=== PATIENT | female | born 1935 | race Caucasian/White ===

== ENCOUNTER → 2017-07-31 | Outpatient (CLI) | payer OTHER ==
[~2017-07-31] MED LIST: ACIFEX; ANTIVERT25 M1 PO; BISOPROLOL-HCT1 EACH; CRESTOR; CRESTOR20 MG PO; LEVOXIL; LEVOXYL112 MCG PO; NEXIUM40 MG/PACK PO; ZIRTEC
== END | disposition home or self-care (01) ==
LOC: RAD 10:54
DX: M17.0 Bilateral primary osteoarthritis of knee (principal); M25.562 Pain in left knee; M25.561 Pain in right knee

== ENCOUNTER 2017-10-06 08:30 | Outpatient (CLI) | payer OTHER | END 2017-10-06 08:38 | disposition home or self-care (01) | LOC: SONOGRAMA 08:30 → MAMO-SONO 09:15 | DX: R10.11 Right upper quadrant pain (principal) ==

== ENCOUNTER 2017-10-06 08:57 | Outpatient (CLI) | payer OTHER | END 2017-10-06 10:21 | disposition home or self-care (01) | LOC: LAB 08:57 | DX: I10 Essential (primary) hypertension (principal); E03.8 Other specified hypothyroidism; G62.89 Other specified polyneuropathies; M54.14 Radiculopathy, thoracic region; M51.37 Other intervertebral disc degeneration, lumbosacral region; N39.0 Urinary tract infection, site not specified; I83.813 Varicose veins of bilateral lower extremities with pain; Z12.11 Encounter for screening for malignant neoplasm of colon ==

== ENCOUNTER 2018-03-12 11:36 | Outpatient (CLI) | payer OTHER | END 2018-03-12 12:59 | disposition home or self-care (01) | LOC: RAD 11:36 | DX: J06.9 Acute upper respiratory infection, unspecified (principal); J42 Unspecified chronic bronchitis ==

== ENCOUNTER 2018-03-22 09:08 | Outpatient (CLI) | payer OTHER | END 2018-03-22 09:12 | disposition home or self-care (01) | LOC: SONOGRAMA 09:08 | DX: R10.11 Right upper quadrant pain (principal) ==

== ENCOUNTER 2019-01-28 08:42 | Outpatient (CLI) | payer OTHER | END 2019-01-28 09:01 | disposition home or self-care (01) | LOC: NUCLEAR 08:42 | DX: I67.89 Other cerebrovascular disease (principal) ==

== ENCOUNTER 2019-01-28 09:44 | Outpatient (CLI) | payer OTHER | END 2019-01-28 10:00 | disposition home or self-care (01) | LOC: MAMO-SONO 09:44 | DX: Z12.31 Encounter for screening mammogram for malignant neoplasm of breast (principal); Z87.898 Personal history of other specified conditions; N61.0 Mastitis without abscess; N60.12 Diffuse cystic mastopathy of left breast; N60.11 Diffuse cystic mastopathy of right breast ==

== ENCOUNTER 2019-02-03 08:51 | Outpatient (CLI) | payer OTHER | END 2019-02-03 09:05 | disposition home or self-care (01) | LOC: NUCLEAR 08:51 | DX: I87.2 Venous insufficiency (chronic) (peripheral) (principal) ==

== ENCOUNTER 2019-03-29 08:04 | Outpatient (CLI) | payer OTHER | END 2019-03-29 08:14 | disposition home or self-care (01) | LOC: LAB 08:04 | DX: D50.8 Other iron deficiency anemias (principal); D63.8 Anemia in other chronic diseases classified elsewhere; E03.8 Other specified hypothyroidism; D55.0 Anemia due to glucose-6-phosphate dehydrogenase [G6PD] deficiency; D51.8 Other vitamin B12 deficiency anemias; D63.1 Anemia in chronic kidney disease; N18.3 Chronic kidney disease, stage 3 (moderate); E06.3 Autoimmune thyroiditis; L43.8 Other lichen planus; K29.70 Gastritis, unspecified, without bleeding ==

== ENCOUNTER 2019-04-03 13:28 | Outpatient (CLI) | payer OTHER | END 2019-04-03 13:52 | disposition home or self-care (01) | LOC: LAB 13:28 | DX: R97.0 Elevated carcinoembryonic antigen [CEA] (principal) ==

== ENCOUNTER 2020-04-02 14:41 | Outpatient (CLI) | payer OTHER | END 2020-04-02 14:48 | disposition home or self-care (01) | LOC: RAD 14:41 | PROVIDERS: ATTEND Internal Medicine Pulmonary Disease | DX: J45.41 Moderate persistent asthma with (acute) exacerbation (principal); J30.1 Allergic rhinitis due to pollen; R06.02 Shortness of breath ==

== ENCOUNTER 2020-09-07 07:47 | Emergency (ER) | payer OTHER ==
[~2020-09-07] VITALS: Ht 162.6 cm; Wt 70.8 kg
[2020-09-07] MEDS ORDERED: NEURONTIN800 MG (07:55)
[2020-09-07] MEDS ORDERED: OMEPRAZOLE40 MG PO (07:55)
[2020-09-07] MEDS ORDERED: METRONIDAZOLE500 MG PO (11:27)
[2020-09-07] MEDS ORDERED: CIPRO500 MG PO (11:27)
== END 2020-09-07 12:19 | disposition home or self-care (01) ==
LOC: ER 07:47
DX: K57.30 Diverticulosis of large intestine without perforation or abscess without bleeding (principal); R10.32 Left lower quadrant pain

== ENCOUNTER 2020-11-08 10:04 | Outpatient (CLI) | payer OTHER ==
[~2020-11-08 10:04] MED LIST changes: +CIPRO500 MG PO; +METRONIDAZOLE500 MG PO; +NEURONTIN800 MG; +OMEPRAZOLE40 MG PO
== END 2020-11-08 10:07 | disposition home or self-care (01) ==
LOC: LAB 10:04
PROVIDERS: ATTEND Internal Medicine Gastroenterology
DX: Z11.52 Encounter for screening for COVID-19 (principal); Z20.828 Contact with and (suspected) exposure to other viral communicable diseases

== ENCOUNTER 2020-12-27 09:36 | Emergency (ER) | payer OTHER ==
[~2020-12-27] VITALS: Ht 160 cm; Wt 68.9 kg
== END 2020-12-27 18:29 | disposition home or self-care (01) ==
LOC: ER 09:36
DX: K57.30 Diverticulosis of large intestine without perforation or abscess without bleeding (principal)

== ENCOUNTER 2021-07-18 13:49 | Outpatient (CLI) | payer OTHER | END 2021-07-18 14:01 | disposition home or self-care (01) | LOC: SONOGRAMA 13:49 | PROVIDERS: ATTEND Internal Medicine Endocrinology, Diabetes & Metabolism | DX: E03.9 Hypothyroidism, unspecified (principal) ==

== ENCOUNTER 2021-10-25 07:22 | Inpatient (IN) | payer OTHER ==
[~2021-10-25] VITALS: Ht 160 cm; Wt 72.1 kg
--- NOTE | 2021-10-25 08:05 | NUR ---
SE RECIBE PE ALERTA Y ORIENTADA X3 CUAL REFIERE DOLOR PELVICO DESDE [place]. REFIRE NO [place]GR[place], NO DOLOR/MOLESTIAS AL ORINAR. SE MARION S/V Y SE UBICA. PTE CON DX DE DIVERTICULITIS.
--- NOTE | 2021-10-25 08:50 | NUR ---
SE LE ORIENTA A PTE SOBRE TRATAMIENTO A SEGUIR, KENNY REFIERE ENTENDER. SE LE COLECTA MUESTRAS JANIE ORDEN MEDICA. PTE REHUSA MEDICAMENTOS
--- NOTE | 2021-10-25 15:56 | NUR ---
SE RECIBE PTE ALERTA Y ORIENTADA X3 EN TIMOTHY CON BARANDAS ELEVADAS. PTE EN ESPERA DE CT PO PENDIENTE.PTE SE MANTIENE BAJO OBSERVACION POR CAMBIOS.
== END 2021-10-28 18:14 | disposition home or self-care (01) | DRG 392 ==
LOC: ER 07:22 → MEDI 17:16
PROVIDERS: ADMIT Internal Medicine; ATTEND Internal Medicine
DX: K57.32 Diverticulitis of large intestine without perforation or abscess without bleeding (principal); K44.9 Diaphragmatic hernia without obstruction or gangrene; I70.90 Unspecified atherosclerosis; I10 Essential (primary) hypertension; E78.5 Hyperlipidemia, unspecified; E03.9 Hypothyroidism, unspecified

== ENCOUNTER 2022-02-28 13:03 | Outpatient (CLI) | payer OTHER | END 2022-02-28 13:17 | disposition home or self-care (01) | LOC: MRI 13:03 | DX: M75.101 Unspecified rotator cuff tear or rupture of right shoulder, not specified as traumatic (principal) | CPT/HCPCS: 73221 ==

== ENCOUNTER → 2022-03-21 | Outpatient (CLI) | payer OTHER | END | disposition home or self-care (01) | LOC: TOM 03-20 12:38 | PROVIDERS: ATTEND Colon & Rectal Surgery | DX: K57.32 Diverticulitis of large intestine without perforation or abscess without bleeding (principal) ==

== ENCOUNTER 2022-03-23 13:57 | Outpatient (CLI) | payer OTHER | END 2022-03-23 14:07 | disposition home or self-care (01) | LOC: SONOGRAMA 13:57 | PROVIDERS: ATTEND Specialist | DX: R10.2 Pelvic and perineal pain (principal) ==

== ENCOUNTER 2022-06-28 11:10 | Outpatient (CLI) | payer OTHER | END 2022-06-28 11:30 | disposition home or self-care (01) | LOC: RAD 11:10 | PROVIDERS: ATTEND Orthopaedic Surgery | DX: M17.0 Bilateral primary osteoarthritis of knee (principal); M16.10 Unilateral primary osteoarthritis, unspecified hip; M54.50 Low back pain, unspecified; M54.59 Other low back pain | CPT/HCPCS: 72148 ==

== ENCOUNTER 2022-10-05 05:42 | Emergency (ER) | payer OTHER ==
[~2022-10-05] VITALS: Ht 170.2 cm; Wt 79.4 kg
[2022-10-05] MEDS ORDERED: GABAPENTIN100 MG (05:52)
[2022-10-05] MEDS ORDERED: TIROSINT112 MCG (05:52)
[2022-10-05] MEDS ORDERED: ZIAC 2.5-6.251 EACH (05:52)
[2022-10-05] MEDS ORDERED: CRESTOR20 MG (05:52)
[2022-10-05] MEDS ORDERED: DICY20TA PO (11:24)
[2022-10-05] MEDS ORDERED: CIPRO500 MG PO (11:24)
[2022-10-05] MEDS ORDERED: INTESTINEX680 M1 PO (11:24)
[2022-10-05] MEDS ORDERED: FLAGYL375 MG PO (11:24)
== END 2022-10-05 11:36 | disposition home or self-care (01) ==
LOC: ER 05:42
DX: K57.92 Diverticulitis of intestine, part unspecified, without perforation or abscess without bleeding (principal); Z88.2 Allergy status to sulfonamides; I11.0 Hypertensive heart disease with heart failure; E03.9 Hypothyroidism, unspecified

== ENCOUNTER 2023-02-17 08:26 | Inpatient (IN) | payer OTHER ==
[~2023-02-17] VITALS: Ht 165.1 cm; Wt 69.4 kg
[~2023-02-17 08:26] MED LIST changes: +CRESTOR20 MG; +DICY20TA PO; +FLAGYL375 MG PO; +GABAPENTIN100 MG; +INTESTINEX680 M1 PO; +TIROSINT112 MCG; +ZIAC 2.5-6.251 EACH
[2023-02-17 09:58] LABS: ALBUMIN 3.4 gm/dL (3.4-5.0); BILIRUBIN TOTAL 0.74 mg/dL (0.3-1.2); CALCIUM 8.9 mg/dL (8.5-10.1); CREATININE SERUM 0.86 mg/dL (0.55-1.02); GFR 62.71; GLOBULINA 3.9 G/DL (2.4-3.5); POTASSIUM 4.57 mEq/L (3.5-5.1); TOTAL PROTEIN 7.3 gm/dL (6.4-8.2)
[2023-02-17 10:02] LABS: PH,URINE 7.5 (5.0-8.0); URINE APPEARANCE Clear; URINE BILIRRUBIN Negative (NEGATIVE); URINE BLOOD Negative; URINE COLOR Yellow; URINE GLUCOSE Negative (NEGATIVE); URINE LEUKOCYTE Negative; URINE NITRATE Negative; URINE PROTEIN Negative (NEGATIVE); URINE UROBILINOGEN 0.2 E.U./dl
[2023-02-17 10:03] LABS: HEMATOCRIT 38.5 % (36.0-45.00); HEMOGLOBIN 13.3 g/dL (12.0-15.00); MEAN CELL VOLUME 92.4 fL (80.00-100.00); MEAN CORPUSCULAR HGB CONC 34.6 g/dl (32.0-36.0); PLATELET COUNT 201 K/uL (150-450); RED BLOOD COUNT 4.17 M/uL (4.00-6.00); RED CELL DISTRIBUTION WIDTH 13.3 % (11.5-14.5)
[2023-02-17 10:23] LABS: URINE BACTERIA FEW; URINE MUCUS SCANT
[2023-02-17 10:25] LABS: URINE CRYSTALS FEW /HPF; URINE RBC 0-3 /HPF; URINE WBC 0-2 /hpf
[2023-02-17 22:19] LABS: INR 1.04; PARTIAL THROMBOPLASTIN TIME 28.6 SECONDS (22.0-34.0); PROTHROMBIN TIME 10.9 SECONDS (9.0-11.5)
[2023-02-19 08:12] LABS: ALBUMIN 3.7 gm/dL (3.4-5.0); BILIRUBIN TOTAL 0.79 mg/dL (0.3-1.2); CREATININE SERUM 0.68 mg/dL (0.55-1.02); GFR 82.23; GLOBULINA 3.1 G/DL (2.4-3.5); MAGNESIUM 2.2 mg/dL (1.8-2.4); PHOSPHOROUS 2.5 mg/dL (2.5-4.9); POTASSIUM 3.91 mEq/L (3.5-5.1); TOTAL PROTEIN 6.8 gm/dL (6.4-8.2)
[2023-02-19 13:56] LABS: HEMATOCRIT 42.4 % (36.0-45.00); HEMOGLOBIN 14.5 g/dL (12.0-15.00); MEAN CELL VOLUME 94.5 fL (80.00-100.00); MEAN CORPUSCULAR HEMOGLOBIN 32.3 pg (27.00-32.0); MEAN CORPUSCULAR HGB CONC 34.2 g/dl (32.0-36.0); PLATELET COUNT 222 K/uL (150-450); RED BLOOD COUNT 4.49 M/uL (4.00-6.00); RED CELL DISTRIBUTION WIDTH 13.1 % (11.5-14.5)
[2023-02-20] MEDS ORDERED: CIPRO500 MG PO (14:57)
[2023-02-20] MEDS ORDERED: METRONIDAZOLE500 MG PO (14:58)
== END 2023-02-20 15:05 | disposition home or self-care (01) | DRG 392 ==
LOC: ER → OB/GYN 21:05
PROVIDERS: General Practice; ADMIT Internal Medicine; ATTEND Internal Medicine
PROC: BW21ZZZ Computerized Tomography (CT Scan) of Abdomen and Pelvis (ICD-10-PCS; principal; 2023-02-17)
DX: K57.32 Diverticulitis of large intestine without perforation or abscess without bleeding (principal); I10 Essential (primary) hypertension; E78.49 Other hyperlipidemia; E03.9 Hypothyroidism, unspecified; Z88.2 Allergy status to sulfonamides

== ENCOUNTER 2023-03-05 09:07 | Outpatient (CLI) | payer OTHER | END 2023-03-05 09:08 | disposition home or self-care (01) | LOC: NUCLEAR 09:07 | PROVIDERS: ATTEND Internal Medicine | DX: I73.9 Peripheral vascular disease, unspecified (principal); Z86.718 Personal history of other venous thrombosis and embolism ==

== ENCOUNTER 2023-03-06 09:50 | Outpatient (CLI) | payer OTHER | END 2023-03-06 09:51 | disposition home or self-care (01) | LOC: NUCLEAR 09:50 | DX: I73.9 Peripheral vascular disease, unspecified (principal) ==

== ENCOUNTER 2023-05-10 12:17 | Outpatient (CLI) | payer OTHER ==
[2023-05-10 13:26] LABS: CREATININE SERUM 0.84 mg/dL (0.55-1.02); GFR 64.44
== END 2023-05-10 12:20 | disposition home or self-care (01) ==
LOC: LAB 12:17
PROVIDERS: ATTEND Radiology Diagnostic Radiology
DX: R10.30 Lower abdominal pain, unspecified (principal)

== ENCOUNTER → 2023-05-11 | Outpatient (CLI) | payer OTHER | END | disposition home or self-care (01) | LOC: TOM 08:00 | PROVIDERS: ATTEND Internal Medicine | DX: R90.0 Intracranial space-occupying lesion found on diagnostic imaging of central nervous system (principal) ==

== ENCOUNTER → 2023-06-29 | Outpatient (CLI) | payer OTHER | END | disposition home or self-care (01) | LOC: MRI 13:36 | DX: M47.22 Other spondylosis with radiculopathy, cervical region (principal) | CPT/HCPCS: 72141 ==

== ENCOUNTER 2023-10-28 08:50 | Emergency (ER) | payer OTHER ==
[~2023-10-28] VITALS: Ht 160 cm; Wt 68.0 kg
[2023-10-28] MEDS ORDERED: PROMETHAZINE HCL 25 MG/ML AMPUL IM STA (09:24)
[2023-10-28] MEDS ORDERED: MEPERIDINE HCL 25 MG/ML AMPUL IM STA (09:24)
[2023-10-28 09:56] LABS: HEMATOCRIT 40.5 % (36.0-45.00); MEAN CELL VOLUME 91.8 fL (80.00-100.00); MEAN CORPUSCULAR HEMOGLOBIN 31.7 pg (27.00-32.0); MEAN CORPUSCULAR HGB CONC 34.6 g/dl (32.0-36.0); PLATELET COUNT 236 K/uL (150-450); RED BLOOD COUNT 4.41 M/uL (4.00-6.00); RED CELL DISTRIBUTION WIDTH 13.1 % (11.5-14.5)
[2023-10-28 10:03] LABS: PH,URINE 7.5 (5.0-8.0); URINE APPEARANCE Clear; URINE BILIRRUBIN Negative (NEGATIVE); URINE BLOOD Negative; URINE COLOR Yellow; URINE GLUCOSE Negative (NEGATIVE); URINE LEUKOCYTE Trace; URINE NITRATE Negative; URINE PROTEIN Negative (NEGATIVE); URINE UROBILINOGEN 0.2 E.U./dl
[2023-10-28 10:04] LABS: URINE BACTERIA 137.2 uL (0.0-1933); URINE EPITHELIAL CELLS 35.3 uL (0.0-38.8); URINE RBC 3.9 uL (0.0-20.8); URINE WBC 17.4 uL (0.0-23.2)
[2023-10-28 10:12] LABS: CALCIUM 9.1 mg/dL (8.5-10.1); CREATININE SERUM 0.79 mg/dL (0.55-1.02); POTASSIUM 4.31 mEq/L (3.5-5.1)
[2023-10-28] MEDS ORDERED: METRONIDAZOLE/SODIUM CHLORIDE 500 MG/100 ML PIGGYBACK IV STA (11:49)
[2023-10-28] MEDS ORDERED: CIPROFLOXACIN IN 5 % DEXTROSE 400 MG/200 ML PIGGYBAG IV STA (11:50)
[2023-10-28] MEDS ORDERED: MEPERIDINE HCL 25 MG/ML AMPUL IM ONE (14:15)
[2023-10-28] MEDS ORDERED: PROMETHAZINE HCL 25 MG/ML AMPUL IM ONE (14:15)
== END 2023-10-28 14:26 | disposition home or self-care (01) ==
LOC: ER 08:51
PROVIDERS: General Practice
DX: K57.32 Diverticulitis of large intestine without perforation or abscess without bleeding (principal); I10 Essential (primary) hypertension; E03.9 Hypothyroidism, unspecified; Z88.2 Allergy status to sulfonamides
CPT/HCPCS: 36415; 74176; 96365; 96372; 99284; J0744; J2180; J2250; J3490

== ENCOUNTER → 2023-11-26 | Outpatient (CLI) | payer OTHER | END | disposition home or self-care (01) | LOC: SONOGRAMA 10:17 | PROVIDERS: ATTEND Internal Medicine Gastroenterology | DX: R10.11 Right upper quadrant pain (principal) ==

== ENCOUNTER 2024-07-02 08:48 | Outpatient (CLI) | payer OTHER | END 2024-07-02 08:52 | disposition home or self-care (01) | LOC: SONOGRAMA 08:48 | PROVIDERS: ATTEND Specialist | DX: R10.2 Pelvic and perineal pain (principal); Q52.5 Fusion of labia ==

== ENCOUNTER 2024-09-03 09:54 | Outpatient (CLI) | payer OTHER | END 2024-09-03 09:57 | disposition home or self-care (01) | LOC: MRI 09:54 | PROVIDERS: ATTEND Orthopaedic Surgery | DX: M54.50 Low back pain, unspecified (principal) | CPT/HCPCS: 72148 ==

== ENCOUNTER 2024-09-11 10:47 | Emergency (ER) | payer OTHER ==
[~2024-09-11] VITALS: Ht 160 cm; Wt 69.4 kg
[2024-09-11] MEDS ORDERED: NEURONTIN300 MG PO (12:34)
== END 2024-09-11 12:43 | disposition home or self-care (01) ==
LOC: ER 10:47
DX: M54.9 Dorsalgia, unspecified (principal); I10 Essential (primary) hypertension; E03.8 Other specified hypothyroidism; Z88.2 Allergy status to sulfonamides

== ENCOUNTER 2024-10-01 10:04 | Outpatient (CLI) | payer OTHER ==
[~2024-10-01 10:04] MED LIST changes: +NEURONTIN300 MG PO
== END 2024-10-01 10:06 | disposition home or self-care (01) ==
LOC: SONOGRAMA 10:04
PROVIDERS: ATTEND Specialist
DX: R10.2 Pelvic and perineal pain (principal)

== ENCOUNTER 2025-02-12 12:08 | Outpatient (CLI) | payer OTHER | END 2025-02-12 12:11 | disposition home or self-care (01) | LOC: MRI 12:08 | PROVIDERS: ATTEND Physical Medicine & Rehabilitation | DX: M17.11 Unilateral primary osteoarthritis, right knee (principal); M25.561 Pain in right knee | CPT/HCPCS: 73721 ==